=== PATIENT | male | born 1980 | race Two or more races ===

== ENCOUNTER 2021-03-17 19:15 | Emergency (ER) | payer OTHER ==
[~2021-03-17] VITALS: Ht 175.3 cm; Wt 104.3 kg
[2021-03-17] MEDS ORDERED: WARFARIN SODIUM1 MG PO (20:50)
[2021-03-17] MEDS ORDERED: METOPROLOL SUCC25 MG PO (20:50)
== END 2021-03-18 00:22 | disposition home or self-care (01) ==
LOC: ER 19:15
DX: B34.8 Other viral infections of unspecified site (principal); Z20.822 Contact with and (suspected) exposure to COVID-19

== ENCOUNTER 2021-04-16 09:31 | Emergency (ER) | payer OTHER ==
[~2021-04-16] VITALS: Ht 177.8 cm; Wt 107.0 kg
[~2021-04-16 09:31] MED LIST: METOPROLOL SUCC25 MG PO; WARFARIN SODIUM1 MG PO
[2021-04-16] MEDS ORDERED: [UNRECOGNIZED DRUG - OTHER] PO (09:37)
== END 2021-04-16 14:25 | disposition home or self-care (01) ==
LOC: ER 09:31
DX: J98.8 Other specified respiratory disorders (principal); B97.89 Other viral agents as the cause of diseases classified elsewhere; Z13.818 Encounter for screening for other digestive system disorders

== ENCOUNTER 2021-04-22 17:26 | Inpatient (IN) | payer OTHER ==
[~2021-04-22] VITALS: Ht 177.8 cm; Wt 107.0 kg
[~2021-04-22 17:26] MED LIST changes: +[UNRECOGNIZED DRUG - OTHER] PO
[2021-04-25] MEDS ORDERED: CETIRIZINE HCL5 MG PO (09:51)
== END 2021-05-01 14:20 | disposition home or self-care (01) | DRG 177 ==
LOC: ER 17:26 → MEDJ 04-23 09:47 → SEC-K 04-23 10:11 → MEDJ 04-23 12:49
PROVIDERS: ADMIT Internal Medicine; ATTEND Internal Medicine
PROC: BW24YZZ Computerized Tomography (CT Scan) of Chest and Abdomen using Other Contrast (ICD-10-PCS; principal; 2021-04-22)
PROC: 4A12X4Z Monitoring of Cardiac Electrical Activity, External Approach (ICD-10-PCS; 2021-04-22)
PROC: 3E0F7GC Introduction of Other Therapeutic Substance into Respiratory Tract, Via Natural or Artificial Opening (ICD-10-PCS; 2021-04-22)
PROC: 5A0945A Assistance with Respiratory Ventilation, 24-96 Consecutive Hours, High Flow/Velocity Cannula (ICD-10-PCS; 2021-04-22)
PROC: 8E0ZXY6 Isolation (ICD-10-PCS; 2021-04-26)
DX: U07.1 COVID-19 (principal); J12.82 Pneumonia due to coronavirus disease 2019; D68.61 Antiphospholipid syndrome; R09.02 Hypoxemia; I10 Essential (primary) hypertension; Z20.822 Contact with and (suspected) exposure to COVID-19; G47.33 Obstructive sleep apnea (adult) (pediatric); F17.290 Nicotine dependence, other tobacco product, uncomplicated; E66.8 Other obesity; D64.89 Other specified anemias; Z86.711 Personal history of pulmonary embolism; Z79.01 Long term (current) use of anticoagulants; E56.1 Deficiency of vitamin K

== ENCOUNTER 2021-09-23 08:26 | Emergency (ER) | payer OTHER ==
[~2021-09-23] VITALS: Ht 177.8 cm; Wt 107.0 kg
[~2021-09-23 08:26] MED LIST changes: +CETIRIZINE HCL5 MG PO
== END 2021-09-23 13:23 | disposition home or self-care (01) ==
LOC: ER 08:26
DX: U07.1 COVID-19 (principal); J12.82 Pneumonia due to coronavirus disease 2019; I10 Essential (primary) hypertension

== ENCOUNTER 2021-09-28 11:15 | Outpatient (CLI) | payer OTHER | END 2021-09-28 11:45 | disposition home or self-care (01) | LOC: ASH CLINIC 11:15 | DX: U07.1 COVID-19 (principal) ==

== ENCOUNTER 2022-02-22 09:16 | Emergency (ER) | payer OTHER ==
[~2022-02-22] VITALS: Ht 177.8 cm; Wt 106.6 kg
[2022-02-22] MEDS ORDERED: PEPCID AC20 MG PO (14:22)
[2022-02-22] MEDS ORDERED: OMEPRAZOLE MAGN20 MG PO (14:22)
[2022-02-22] MEDS ORDERED: SKELAGESIC PO (14:22)
[2022-02-22] MEDS ORDERED: INTESTINEX680 M1 PO (14:22)
== END 2022-02-22 14:34 ==
LOC: ER 09:16
DX: K21.9 Gastro-esophageal reflux disease without esophagitis (principal); R07.89 Other chest pain; D68.61 Antiphospholipid syndrome; Z86.72 Personal history of thrombophlebitis; Z95.828 Presence of other vascular implants and grafts; Z86.718 Personal history of other venous thrombosis and embolism; I10 Essential (primary) hypertension; Z20.822 Contact with and (suspected) exposure to COVID-19